=== PATIENT | male | born 1975 | race Hispanic/Latino ===

== ENCOUNTER → 2020-12-16 09:20 | Outpatient (CLI) | payer BC, SELFPAY ==
--- NOTE | ~2020-12-16 | MM_ITS ---
EXAMINATION: MM diagnostic mammo unilat RT HISTORY: Lump behind right nipple TECHNIQUE: Bilateral MLO views and right cc view. CAD analysis was submitted and interpreted. COMPARISON: None BREAST PARENCHYMAL COMPOSITION: There are scattered areas of fibroglandular density. FINDINGS: There is mild gynecomastia on the right, minimal gynecomastia on the left. No suspicious mass or architectural distortion, malignant constipation, skin thickening or retraction is detected. IMPRESSION: Bilateral gynecomastia, mild on the right, minimal on the left BI-RADS Category 2: Benign finding(s). Reviewed, dictated and finalized at location A.
== END ==
PROVIDERS: PCP Family Medicine; Visit Provider Physician Assistant
DX: N62 Hypertrophy of breast (principal)
CPT/HCPCS: 77065

== ENCOUNTER 2021-05-12 09:29 | Outpatient (CLI) | payer BC, SELFPAY ==
--- NOTE | ~2021-05-12 | XR_ITS ---
EXAMINATION: XR ankle LT 2V DATE: 05/12/2021 09:50 INDICATION: Left ankle pain TECHNIQUE: Two views of the left ankle are obtained. COMPARISON: None. FINDINGS: There is no fracture, dislocation, or subluxation. The joint spaces are normal. The soft ti ssues are unremarkable. A plantar calcaneal enthesophyte is noted. IMPRESSION: 1. No acute osseous abnormality. Reviewed, dictated and finalized at location A. MACHINE OPERATOR
== END 2021-05-12 09:30 | disposition home or self-care (01) ==
LOC: ANHIMG 09:37
PROVIDERS: PCP Family Medicine; Visit Provider Nurse Practitioner Gerontology
DX: M25.579 Pain in unspecified ankle and joints of unspecified foot (principal)
CPT/HCPCS: 73600

== ENCOUNTER 2022-05-30 11:30 | Outpatient (CLI) | payer BC, SELFPAY ==
--- NOTE | ~2022-05-30 | XR_ITS ---
EXAMINATION: XR foot RT min 3V DATE: 05/30/2022 11:54 INDICATION: Right foot pain. TECHNIQUE: 4 views of right foot were obtained. COMPARISON: None. FINDINGS: Bone alignment is normal. No fracture. There is mild osteoarthritis of first metatarsophala ngeal joint and some of the interphalangeal joints and midfoot joints. There is internal fixation of distal tibia. There is an enthesophyte at plantar aspect of calcaneal tuberosity. IMPRESSION: 1. Mild polyarticular osteoarthritis. Reviewed, dictated and finalized at location A. UET DIRECTOR
== END 2022-05-30 11:31 | disposition home or self-care (01) ==
LOC: ANHIMG 11:36
PROVIDERS: PCP Family Medicine; Visit Provider Nurse Practitioner Gerontology
DX: M19.071 Primary osteoarthritis, right ankle and foot (principal)
CPT/HCPCS: 73630

== ENCOUNTER 2023-05-24 10:35 | Outpatient (CLI) | payer BC, SELFPAY ==
[2023-05-24 12:18] LABS: Influenza A QL RT-PCR Positive (Negative); Influenza B QL RT-PCR Negative (Negative); RSV RNA, RT-PCR Negative (Negative); SARS-CoV-2 RNA PCR Negative (Negative)
== END 2023-05-24 10:36 | disposition home or self-care (01) ==
LOC: ANHLAB 10:37
PROVIDERS: PCP Family Medicine; Visit Provider Physician Assistant
DX: R50.9 Fever, unspecified (principal); Z20.822 Contact with and (suspected) exposure to COVID-19
CPT/HCPCS: 87637

== ENCOUNTER 2024-08-12 12:07 | Outpatient (CLI) | payer BC, SELFPAY ==
--- NOTE | ~2024-08-12 | XR_ITS ---
HISTORY: M79.671 - Pain in right foot COMPARISON: 05/30/2022 TECHNIQUE: 2 views of the right foot were performed FINDINGS: No acute fracture or dislocation is appreciated. Fixation hardware within the distal tibia extending into the talar dome Ossification of the insertion of the Achilles tendon is present. The base of the fifth metatarsal is intact. Small calcaneal spur is noted. No significant soft tissue swelling is present. IMPRESSION: Degenerative disease, without acute fracture. Reviewed, dictated and finalized at location A.
== END 2024-08-12 12:08 | disposition home or self-care (01) ==
LOC: MICIMG 12:08
PROVIDERS: PCP Family Medicine; Visit Provider Student in an Organized Health Care Education/Training Program
DX: M19.071 Primary osteoarthritis, right ankle and foot (principal)
CPT/HCPCS: 73620